=== PATIENT | female | born 1995 | race Caucasian/White ===

== ENCOUNTER 2016-12-25 11:18 | Emergency (ER) | payer OTHER ==
[2016-12-25 11:57] VITALS: BP 112/73
--- NOTE | 2016-12-25 12:56 | UC ---
Eye Complaint HPI - HPI Summary HPI Summary: ONE WEEK OF SINUS PRESSURE, CONGESTION. YESTERDAY BEGAN HAVING LEFT EYE REDNESS AND DISCHARGE. CRUSTED SHUT THIS MORNING. NO FEVER. - History of Current Complaint Chief Complaint: UCEye Stated Complaint: EYE COMPLAINT Time Seen by Provider: 12/25/16 12:01 Hx Obtained From: Patient, Family/Manager [employer] Hx Last Menstrual Period: 12/24/16 Onset/Duration: Gradual Onset, Lasting Weeks, Worse Since - YESTERDAY Severity Initially: Mild Severity Currently: Mild Pain Intensity: 0 Pain Scale Used: 0-10 Numeric Location of Injury: Conjunctiva Aggravating Factor(s): Nothing Associated Signs And Symptoms: Positive: Drainage (Purulent) - Risk Factors Penetrating Injury Risk Factor: Negative - Allergies/Home Medications Allergies/Adverse Reactions: Allergies Allergy/AdvReac Type Severity Reaction Status Date / Time No Known Allergies Allergy Verified 01/05/16 13:28 PMH/Surg Hx/FS Hx/Imm Hx Previously Healthy: Yes Endocrine History Of: Denies: Diabetes Cardiovascular History Of: Denies: Hypertension, Pacemaker/ICD GI/ History Of: Denies: Renal Disease - Surgical History Surgical History: Yes Surgery Procedure, Year, and Place: ORAL SURGERY - Family History Known Family History: Positive: None Negative: Respiratory Disease Family History: NON CONTRIBUTORY - Social History Occupation: Student Lives: With Family Alcohol Use: Occasionally Substance Use Type: Marijuana Smoking Status (MU): Never Smoked Tobacco Review of Systems Constitutional: Negative Skin: Negative Eyes: Eye Redness ENT: Sore Throat, Ear Ache, Nasal Discharge Respiratory: Negative Cardiovascular: Negative Gastrointestinal: Negative Genitourinary: Negative Motor: Negative Neurovascular: Negative Musculoskeletal: Negative Neurological: Negative Psychological: Negative All Other Systems Reviewed And Are Negative: Yes Physical Exam Triage Information Reviewed: Yes Appearance: Well-Appearing, No Pain Distress, Well-Nourished Vital Signs: Initial Vital Signs Temp 98.6 F 12/25/16 11:53 Pulse 77 12/25/16 11:53 Resp 18 12/25/16 11:53 BP 112/73 12/25/16 11:53 Pulse Ox 98 12/25/16 11:53 Vital Signs Reviewed: Yes Eyes: Positive: Conjunctiva Inflamed, Discharge ENT: Positive: Pharynx normal, TM bulging, TM dull Dental Exam: Normal Neck exam: Normal Neck: Positive: Supple, Nontender, No Lymphadenopathy Respiratory Exam: Normal Respiratory: Positive: Chest non-tender, Lungs clear, Normal breath sounds, No respiratory distress, No accessory muscle use Cardiovascular Exam: Normal Cardiovascular: Positive: RRR, No Murmur, Pulses Normal Abdominal Exam: Normal Abdomen Description: Positive: Nontender, No Organomegaly Musculoskeletal Exam: Normal Neurological Exam: Normal Psychological Exam: Normal Skin Exam: Normal Eye Complaint Course/Dx - Differential Dx/Diagnosis Differential Diagnosis/HQI/PQRI: Conjunctivitis Provider Diagnoses: LEFT CONJUNCTIVITIS. SINUSITIS Discharge - Discharge Plan Condition: Stable Disposition: HOME Prescriptions: Amoxicillin/Clavulanate TAB* [Augmentin TAB 875*] 875 mg PO BID #20 tab Fluconazole [Diflucan 150 MG (NF)] 150 mg PO ONCE #1 tab Polymyx/Trimethoprim OPTH* [Polytrim OPHTH*] 1 drop LEFT EYE Q3H #1 btl Patient Education Materials: Sinusitis (ED), Conjunctivitis (ED) Forms: *School Release Referrals: [facility]ERR[facility] [Outside] No Primary Care Phys,NOPCP [Primary Care Provider] -
== END 2016-12-25 13:09 | disposition home or self-care (01) ==
LOC: UCEAST 11:18
DX: H10.32 Unspecified acute conjunctivitis, left eye (principal); J32.9 Chronic sinusitis, unspecified; F12.90 Cannabis use, unspecified, uncomplicated
CPT/HCPCS: 99212; G0463

== ENCOUNTER 2017-06-26 03:42 | Emergency (ER) | payer OTHER ==
[2017-06-26 03:56] VITALS: BP 118/67
[2017-06-26] MEDS ORDERED: Ondansetron ODT TAB* 4 MG PO ONE ×2 (04:14→04:52)
[2017-06-26] MEDS ORDERED: Morphine INJ* 4 MG/ML 1 ML SYRINGE SUBCUT ONE (04:14)
[2017-06-26] MEDS ORDERED: Morphine INJ* 4 MG/ML 1 ML SYRINGE ONE (04:17)
[2017-06-26] MEDS ORDERED: Ondansetron ODT TAB* 4 MG ONE ×2 (04:18→04:52)
--- NOTE | 2017-06-26 04:53 | ED ---
I, Oh,Watson, scribed for Memo Cruz MD on 06/26/17 at 0417 . Throat Pain/Nasal Congestion - HPI Summary HPI Summary: This 21 y/o female presents to ED for post-op, pounding dental pain since 0900 AM yesterday. Positive n/v. PMHx is significant for recent right bottom wisdom tooth extraction 3 days ago. She reports trouble falling asleep and n/v due to pain tonight even with prescribed tramadol, hydrocodone, and APAP 400 mg taken around 0200 AM tonight. - History of Current Complaint Chief Complaint: EDDentalPain Time Seen by Provider: 06/26/17 04:11 Hx Obtained From: Patient, Family/[employer] - Mother present at bedside Onset/Duration: Gradual Onset Cough: None - Allergies/Home Medications Allergies/Adverse Reactions: Allergies Allergy/AdvReac Type Severity Reaction Status Date / Time No Known Allergies Allergy Verified 06/26/17 03:53 PMH/Surg Hx/FS Hx/Imm Hx Endocrine/Hematology History: Denies: Hx Diabetes Cardiovascular History: Denies: Hx Hypertension, Hx Pacemaker/ICD History: Denies: Hx Renal Disease Sensory History: Denies: Hx Hearing Aid Psychiatric History: Reports: Hx Panic Disorder - ANXIETY - Surgical History Surgery Procedure, Year, and Place: ORAL SURGERY - Immunization History Date of Tetanus Vaccine: Unk Date of Influenza Vaccine: 06/26 Infectious Disease History: No Infectious Disease History: Denies: History Other Infectious Disease, Traveled Outside the [place] in Last 30 Days - Family History Known Family History: Negative: Respiratory Disease - Social History Alcohol Use: Occasionally Hx Substance Use: Yes Substance Use Type: Reports: Marijuana Hx Tobacco Use: No Smoking Status (MU): Never Smoked Tobacco Review of Systems Negative: Fever Positive: Dental Pain All Other Systems Reviewed And Are Negative: Yes Physical Exam Triage Information Reviewed: Yes Vital Signs On Initial Exam: Initial Vitals Temp Pulse Resp BP Pulse Ox 98.5 F 90 16 118/67 100 06/26/17 03:55 06/26/17 03:55 06/26/17 03:55 06/26/17 03:55 06/26/17 03:55 Vital Signs Reviewed: Yes Appearance: Positive: Well-Appearing, Pain Distress - moderate discomfort Skin: Positive: Warm Head/Face: Positive: Normal Head/Face Inspection Eyes: Positive: [place] ENT: Positive: Hearing grossly normal Dental: Positive: Other - tender at rt wisdom tooth extraction site Neck: Positive: Supple, Nontender Respiratory/Lung Sounds: Positive: Breath Sounds Present Neurological: Positive: Alert, Oriented to Person Place, Time, Normal Gait - [place] Coma Scale Coma Scale Total: 15 Diagnostics - Vital Signs Vital Signs Temp Pulse Resp BP Pulse Ox 06/26/17 03:55 98.5 F 90 16 118/67 100 - Laboratory Lab Statement: Any lab studies that have been ordered have been reviewed, and results considered in the medical decision making process. Re-Evaluation - Re-Evaluation First Eval Change: Improved EENT Course/Dx - Course Assessment/Plan: This 21 y/o female presents to ED for dental pain s/p wisdom tooth extraction at right lower jaw 3 days ago. Positive nause and trouble sleeping due to pain. Pain started yesterday, and pt had trouble controlling pain even with prescribed hydrocodone and tramadol in addition to OTC 400 mg APAP. Pt was given morphine and Zofran to symptomatically treat her pain and nausea. Pt is discharged with instruction to follow up with her dentist in the morning. - Diagnoses Provider Diagnoses: Pain, dental Discharge - Discharge Plan Condition: Improved Disposition: HOME Patient Education Materials: Toothache (ED) Referrals: No Primary Care Phys,NOPCP [Primary Care Provider] - Additional Instructions: Please be sure to follow up with your dentist in the morning. The documentation as recorded by the Eliseo hickey Soohyun accurately reflects the service I personally performed and the decisions made by me, Memo Cruz MD.
== END 2017-06-26 04:58 | disposition home or self-care (01) ==
LOC: ED 03:42
DX: K08.89 Other specified disorders of teeth and supporting structures (principal); K08.409 Partial loss of teeth, unspecified cause, unspecified class; F41.9 Anxiety disorder, unspecified; F12.90 Cannabis use, unspecified, uncomplicated
CPT/HCPCS: 96372; 99282; A9270-GY; J2270